=== PATIENT | male | born 1950 | race Caucasian/White ===

== ENCOUNTER 2020-05-31 07:59 | Day surgery (SDC) | payer MEDICARE, OTHER ==
[2020-05-31] VITALS (10 sets, daily range): BP systolic 104–128; BP diastolic 66–80; PULSE 45–57; TEMP 97.9
[~2020-05-31] VITALS: Ht 185.4 cm; Wt 99.3 kg
[~2020-05-31 07:59] MED LIST: CELEXA 20MG20 MG/TAB PO; HCTZ 25MG TAB25 MG PO; LOPID 600M600 MG/TAB PO; NEURONTIN100 MG/CAP PO; NORVASC 10MG10 MG PO
[2020-05-31 08:40] LABS: HEMATOCRIT 43.7 % (42.0-52.0); HEMOGLOBIN 14.5 g/dl (13.5-18.0); MEAN CELL VOLUME 87 fl (80.0-100.0); MEAN CORPUSCULAR HEMOGLOBIN 29 pg (27.0-31.0); MEAN CORPUSCULAR HGB CONC 33 g/dl (33.0-37.0); MEAN PLATELET VOLUME 10.4 fl (7.4-10.4); PLATELET COUNT 210 K/mm3 (130-400); RED BLOOD COUNT 5.01 M/mm3 (4.20-5.60); REDCELL DISTRIBUTION WIDTH-CV 12.6 % (11.5-14.5)
[2020-05-31 08:48] LABS: PROTHROMBIN TIME 11.6 SECONDS (9.7-12.8)
[2020-05-31 08:50] LABS: PARTIAL THROMBOPLASTIN TIME 35.3 SECONDS (26.0-37.0)
[2020-05-31 08:52] LABS: CALCIUM 8.6 mg/dL (8.4-10.2); CREATININE, serum 0.86 (0.66-1.25); POTASSIUM 3.7 mmol/L (3.4-5.0)
--- NOTE | 2020-05-31 10:34 | NUR ---
SEE MERGE DOCUMENTATION FOR MEDICATION ADMINISTRATION TIMES AND INTRA/POST PROCEDURE SEDATION ASSESSMENTS. RIGHT HAND BARBEAU TEST POSITIVE.
[2020-05-31] MEDS ORDERED: NITRO-DUR0.2 MG/PAT TD (11:27)
--- NOTE | 2020-05-31 14:00 | NUR ---
DC instructions reviewed with pt and his daughter, both express understanding. Air has been removed from TR band without bleeding or complications. Radial puncture site dressed with folded 2x2 and bandaid. IV DC'd with catheter intact, and bleeding controlled at site. Pt is steady on feet. He is assisted out to daughter's car by wheelchair with all belongings.
== END 2020-05-31 14:00 | disposition home or self-care (01) ==
LOC: COL.CAR 07:59
PROVIDERS: Internal Medicine Cardiovascular Disease
DX: I08.2 Rheumatic disorders of both aortic and tricuspid valves (principal); I25.10 Atherosclerotic heart disease of native coronary artery without angina pectoris; I25.84 Coronary atherosclerosis due to calcified coronary lesion; I77.810 Thoracic aortic ectasia; E78.5 Hyperlipidemia, unspecified; I42.0 Dilated cardiomyopathy; Z20.822 Contact with and (suspected) exposure to COVID-19; Z79.899 Other long term (current) drug therapy
CPT/HCPCS: C1769; J1644; J2250; J3010; Q9967

== ENCOUNTER → 2020-07-02 | Outpatient (CLI) | payer MEDICARE, OTHER ==
[~2020-07-02] MED LIST changes: +ASPIRIN 81M81 MG/TA2 PO; +NITRO-DUR0.2 MG/PAT TD; +PRAVACHOL 40MG40 MG PO
== END ==
LOC: ZCOL.LAB 10:42
DX: M79.604 Pain in right leg (principal); R60.0 Localized edema

== ENCOUNTER → 2020-12-24 | Outpatient (CLI) | payer MEDICARE, OTHER ==
[2020-12-24 07:40] LABS: BASO % 0.5 % (0.0-2.0); EOS # 0.3 K/mm3 (0.0-0.7); EOS % 3.8 % (0-4.0); GRAN % 64.2 % (42.2-75.2); HEMATOCRIT 44.5 % (42.0-52.0); HEMOGLOBIN 14.9 g/dl (13.5-18.0); LYMPH # 1.8 K/mm3 (1.2-3.4); LYMPH % 23.4 % (20.0-51.0); MEAN CELL VOLUME 84 fl (80.0-100.0); MEAN CORPUSCULAR HEMOGLOBIN 28 pg (27.0-31.0); MEAN CORPUSCULAR HGB CONC 34 g/dl (33.0-37.0); MEAN PLATELET VOLUME 10.5 fl (7.4-10.4); MONO # 0.6 K/mm3 (0.1-0.6); MONO % 7.8 % (1.7-9.3); PLATELET COUNT 220 K/mm3 (130-400); RED BLOOD COUNT 5.27 M/mm3 (4.20-5.60); REDCELL DISTRIBUTION WIDTH-CV 12.7 % (11.5-14.5)
[2020-12-24 08:00] LABS: ALBUMIN 3.5 gm/dL (3.4-4.8); BILIRUBIN,TOTAL 0.5 mg/dL (0.2-1.2); CALCIUM 9.7 mg/dL (8.4-10.2); CHOLESTEROL RISK RATIO 2.6; CREATININE, serum 0.88 mg/dL (0.72-1.25); POTASSIUM 3.7 mmol/L (3.5-4.5); TOTAL PROTEIN 7.5 gm/dL (6.2-8.1)
[2020-12-24 08:22] LABS: THYROID STIMULATING HORMONE 2.58 uIU/mL (0.350-4.940)
== END ==
LOC: COL.LAB 06:59
PROVIDERS: Family Medicine
DX: E78.5 Hyperlipidemia, unspecified (principal); I10 Essential (primary) hypertension

== ENCOUNTER 2021-01-03 06:54 | Day surgery (SDC) | payer MEDICARE, OTHER ==
[~2021-01-03] VITALS: Ht 185.4 cm; Wt 100.5 kg
[~2021-01-03 06:54] MED LIST changes: -ASPIRIN 81M81 MG/TA2 PO; -PRAVACHOL 40MG40 MG PO
[2021-01-03 07:13] VITALS: BP 137/78; PULSE 59; TEMP 97.8
[2021-01-03] MEDS ORDERED: ASPIRIN 81M81 MG/TA2 PO (07:24)
[2021-01-03] MEDS ORDERED: PRAVACHOL 40MG40 MG PO (07:24)
[2021-01-03] MEDS ORDERED: NITRO-DUR0.2 MG/PAT TD (07:25)
[2021-01-03 08:30] VITALS: BP 117/69; PULSE 53; TEMP 97.9
--- NOTE | 2021-01-03 08:30 | NUR ---
Pt to GI bay 9 via cart from ENDO. Pt awake and alert. Pt ambulates to recliner with stand by assistance. VSS. Juice and crackers given per pt request. Pt denies pain or nausea. Daughter in room. Will continue to monitor.
[2021-01-03 08:40] VITALS: BP 123/85; PULSE 50
--- NOTE | 2021-01-03 08:40 | NUR ---
Pt continues to rest. Tolerating food and fluids without difficulites. Call light within reach.
[2021-01-03 08:55] VITALS: BP 128/69; PULSE 51
--- NOTE | 2021-01-03 08:55 | NUR ---
Pt continues to rest. Denies needs.
--- NOTE | 2021-01-03 09:00 | NUR ---
Discharge instructions reviewed. Pt voices understanding. IV site discontinued with all parts intact. Pt up to dress. Call light within reach.
--- NOTE | 2021-01-03 09:20 | NUR ---
Pt escorted to private car via wheel chair. Pt accompanied home by his daughter.
== END 2021-01-03 09:20 | disposition home or self-care (01) ==
LOC: SDCO 06:54
DX: Z12.11 Encounter for screening for malignant neoplasm of colon (principal); K59.00 Constipation, unspecified; I10 Essential (primary) hypertension; G47.33 Obstructive sleep apnea (adult) (pediatric); G62.9 Polyneuropathy, unspecified; M19.90 Unspecified osteoarthritis, unspecified site; I25.10 Atherosclerotic heart disease of native coronary artery without angina pectoris; I80.9 Phlebitis and thrombophlebitis of unspecified site; Z79.82 Long term (current) use of aspirin; Z79.899 Other long term (current) drug therapy; Z99.89 Dependence on other enabling machines and devices
CPT/HCPCS: J2704; J7030